=== PATIENT | female | born 1980 | race Caucasian/White ===

== ENCOUNTER 2017-02-24 11:12 | Emergency (ER) | payer SELFPAY ==
[~2017-02-24 11:12] MED LIST: CHLO.12%30 SSP; CIPR500T4 PO; CLIN150 PO; CLIN1CAP5 PO; DICL50TA2 PO; LISI-363 PO; LORTA5 PO
[2017-02-24 11:16] VITALS: BP 140/87; PULSE 98; RESP 20; TEMP 98.4; O2SAT 99
[2017-02-24 12:27] LABS: BACTERIA, URINE MOD /hpf; BLOOD, URINE TRACE (NEG); COMMENT (UR) CULTURE INDICATED; CULTURE IF INDICATED CULTURE INDICATED; GLUCOSE,URINE NEG (NEG); KETONE, URINE NEG (NEG); MUCUS URINE MOD /lpf (OCC); NITRITE,URINE NEG (NEG); SQUAMOUS EPITHELIAL CELL URINE 12 /hpf (0-5); URINE COLOR YELLOW (YELLW/STRAW)
[2017-02-24] MEDS ORDERED: CEPH-460 PO (13:59)
[2017-02-24] MEDS ORDERED: BENZ100 PO (13:59)
--- NOTE | 2017-02-24 14:00 | PD ---
HPI Chief Complaint: Flank/Kidney Pain Time Seen by Provider: 13:59 Travel History International Travel<30 days: No Contact w/Intl Traveler<30days: No Traveled to known affect area: No History of Present Illness HPI 36-year-old female with a history of polycystic kidney disease and recurrent urinary tract infections presents to the emergency department for evaluation of left flank pain that began last night. States that the pain has been constant with no aggravating or alleviating factors. States that this is typical pain that she has when she has a kidney infection. Denies any fever, chills, nausea , vomiting, burning with urination, painful urination, hematuria. States that she has had cold symptoms for the last week, states that she had runny nose, nasal congestion and sore throat one week ago and developed a cough this weekend. No recent travel or sick contacts. Denies . No other complaints. PFSH Past Medical History Anxiety: Yes Depression: No Cancer: No Cardiovascular Problems: Yes Diminished Hearing: No Endocrine: No Genitourinary: Yes (POLYCYCSTIC KIDNEY DISEASE, FREQ UTI) Hypertension: Yes Immune Disorder: No Psychiatric: Yes Immunizations Current: Yes ?: Not LMP: 02/12/17 Menopausal: No : 2 Para: 1 Miscarriage: 0 : 1 Past Surgical History Abdominal Surgery: Yes (HERNIA REPAIR UMBILICAL) Pacemaker: No Other Surgery: Yes (BREAST AGUMENTATION) Social History Alcohol Use: Yes (SOCIAL) Tobacco Use: Yes (5 CIGS DAILY) Substance Use: No Allergies-Medications (Allergen,Severity, Reaction): Coded Allergies: Penicillin (Unverified Allergy, Severe, Rash, 12/06/15) Reported Meds & Prescriptions Reported Meds & Active Scripts Active Tessalon Perles (Benzonatate) 100 Mg Cap 100 Mg PO TID PRN 7 Days Keflex (Cephalexin) 500 Mg Cap 500 Mg PO Q12H 7 Days Peridex Oral Rinse (Chlorhexidine Gluconate) 0.12 % Eve 15 Ml SSP Q8HR 5 Days Diclofenac Potassium 50 Mg Tab 1 Tab PO Q8 PRN Clindamycin Hcl (Clindamycin HCl) 150 Mg Cap 3 Capl PO Q8HR 7 Days Reported Cipro (Ciprofloxacin HCl) 500 Mg Tab 500 Mg PO BID [place] 5-325 mg (Hydrocodone-Acetaminophen 5-325 mg) 5 mg/325 mg Tab 1 Tab PO Q4H PRN Cleocin (Clindamycin HCl) 150 Mg Cap 150 Mg PO Q6 Lisinopril 20 mg (Lisinopril) 20 Mg Tab 1 Tab PO DAILY Review of Systems Except as stated in HPI: all other systems reviewed are Neg Physical Exam Narrative GENERAL: Well-nourished and well-developed female patient in no acute distress who is nontoxic appearing. SKIN: Warm and dry. HEAD: Normocephalic and atraumatic. EYES: No injection, drainage, or hyphema noted. PERRLA. EOMI. ENT: No nasal drainage noted. Oropharynx is clear. NECK: Supple and the trachea is midline. CARDIOVASCULAR: Regular rate and rhythm. RESPIRATORY: Breath sounds are equal bilaterally with no accessory muscle use, wheezing, rhonchi, or crackles. GASTROINTESTINAL: Abdomen is soft, non-tender, and nondistended. MUSCULOSKELETAL: No obvious deformities, swelling, cyanosis, or ecchymosis is present throughout the upper and lower extremities. Patient has full range of motion without any signs of neurovascular compromise. BACK: Left CVA tenderness. NEUROLOGICAL: Awake, alert, and oriented. Normal speech and gait. Cranial nerves are grossly intact. Data Data Last Documented VS Vital Signs Date Time Temp Pulse Resp B/P Pulse Ox O2 Delivery O2 Flow Rate FiO2 02/24/17 11:16 98.4 98 20 140/87 99 Room Air Orders Urinalysis - C+S If Indicated (02/24/17 11:25) Ed Urine Pregnancytest Poc (02/24/17 11:25) Urine Culture (02/24/17 11:36) Labs Laboratory Tests Test 02/24/17 11:36 Urine Color YELLOW Urine Turbidity HAZY Urine pH 6.0 Urine Specific [place] 1.014 Urine Protein 30 mg/dL Urine Glucose (UA) NEG mg/dL Urine Ketones NEG mg/dL Urine Occult Blood TRACE Urine Nitrite NEG Urine Bilirubin NEG Urine Urobilinogen LESS THAN 2.0 MG/DL Urine Leukocyte Esterase MOD Urine RBC 4 /hpf Urine WBC 25 /hpf Urine Squamous Epithelial 12 /hpf Cells Urine Bacteria MOD /hpf Urine Mucus MOD /lpf Microscopic Urinalysis Comment CULTURE INDICATED MDM Medical Decision Making Medical Screen Exam Complete: Yes Emergency Medical Condition: Yes Differential Diagnosis Pyelonephritis versus cystitis versus bronchitis versus URI Narrative Course 36-year-old female with history of polycystic kidney disease and recurrent kidney infections presents to the emergency room for evaluation of left flank pain that began last night. Patient is afebrile, vital signs are stable. She does have left CVA tenderness but otherwise physical examination is unremarkable. Patient appears well overall. ED urine test is negative. Urinalysis shows 30 protein, trace occult blood, moderate leukocyte esterase, 4 red blood cells, 25 white blood cells, moderate bacteria, moderate mucous. This is consistent with a urinary tract infection and the patient will be treated with Keflex. She also has a viral upper respiratory infection, I discussed supportive care with the patient. Patient is discharged to home and is advised to follow up as an outpatient with her PCP. Patient verbalizes understanding and agreement with treatment plan. Diagnosis Primary Impression: Pyelonephritis Additional Impression: URI (upper respiratory infection) Qualified Code: J06.9 - Viral upper respiratory tract infection Referrals: Primary Care Physician Patient Instructions: General Instructions, Kidney Infection (ED) Additional Instructions: Take medication as prescribed. Follow-up with your Primary Care Physician. Return to the ED for any acute worsening of symptoms. Med/Other Pt SpecificInfo: Prescription(s) given Scripts Benzonatate (Tessalon Perles)100 Mg [id number] Mg PO TID PRN (COUGH) 7 Days Ref 0 Prov:Izabela Alejandre MD 02/24/17 Cephalexin (Keflex)500 Mg [id number] Mg PO Q12H 7 Days Ref 0 Prov:Izabela Alejandre MD 02/24/17 Disposition: 01 DISCHARGE HOME Condition: Stable Vivienne Frank Feb 24, 2017 14:00
== END 2017-02-24 14:09 | disposition home or self-care (01) ==
LOC: NEPD 11:12
DX: N12 Tubulo-interstitial nephritis, not specified as acute or chronic (principal); J06.9 Acute upper respiratory infection, unspecified; N39.0 Urinary tract infection, site not specified; Q61.3 Polycystic kidney, unspecified; I10 Essential (primary) hypertension; F41.9 Anxiety disorder, unspecified; F17.210 Nicotine dependence, cigarettes, uncomplicated; Z79.899 Other long term (current) drug therapy; Z88.0 Allergy status to penicillin
CPT/HCPCS: 81001; 84703; 87077; 87086; 87186; 99284

== ENCOUNTER 2017-02-28 21:59 | Emergency (ER) | payer SELFPAY ==
[~2017-02-28] VITALS: Ht 170.2 cm; Wt 55.0 kg
[~2017-02-28 21:59] MED LIST changes: +BENZ100 PO; +CEPH-460 PO
[2017-02-28 22:01] VITALS: BP 148/110; PULSE 106; RESP 16; TEMP 99.2; O2SAT 98
[2017-02-28] MEDS ORDERED: SODIUM CHLOR 0.9% 1000 ML INJ 1,000 ML IV ONE (22:33)
[2017-02-28] MEDS ORDERED: AMLO5TAB2 PO (22:35)
--- NOTE | 2017-02-28 22:38 | PD ---
HPI . Left flank pain Chief Complaint: Flank/Kidney Pain Time Seen by Provider: 22:27 Travel History International Travel<30 days: No Contact w/Intl Traveler<30days: No Traveled to known affect area: No History of Present Illness HPI This patient presents with chief complaint of left flank pain. Onset was 02/23. Patient was seen here on 02/24 and diagnosed with UTI. She was treated with Keflex. She presents back to us today complaining with continued and worsening pain. She states that the pain is now severe. It is associated with nausea but no vomiting. She denies any urinary tract symptoms such as dysuria, frequency or urgency. PFSH Past Medical History Anxiety: Yes Depression: No Cancer: No Cardiovascular Problems: Yes Diminished Hearing: No Endocrine: No Genitourinary: Yes (POLYCYCSTIC KIDNEY DISEASE, FREQ UTI) Hypertension: Yes Immune Disorder: No Psychiatric: Yes Immunizations Current: Yes ?: Not LMP: January Menopausal: No : 2 Para: 1 Miscarriage: 0 : 1 Past Surgical History Abdominal Surgery: Yes (HERNIA REPAIR UMBILICAL) Pacemaker: No Other Surgery: Yes (BREAST AGUMENTATION) Social History Alcohol Use: Yes (SOCIAL) Tobacco Use: Yes (CIGS when she drinks) Substance Use: No Allergies-Medications (Allergen,Severity, Reaction): Coded Allergies: Penicillin (Unverified Allergy, Severe, Rash, 02/28/17) Reported Meds & Prescriptions Reported Meds & Active Scripts Active Tessalon Perles (Benzonatate) 100 Mg Cap 100 Mg PO TID PRN 7 Days Keflex (Cephalexin) 500 Mg Cap 500 Mg PO Q12H 7 Days Reported Amlodipine (Amlodipine Besylate) 5 Mg Tab 5 Mg PO DAILY Review of Systems Except as stated in HPI: all other systems reviewed are Neg General / Constitutional: No: Fever, Chills Gastrointestinal: Positive: Nausea, No: Vomiting Genitourinary: Positive: Flank Pain, No: Urgency, Frequency, Dysuria Physical Exam Narrative GENERAL: Awake and alert and in no acute distress. SKIN: Warm and dry. HEAD: Atraumatic. Normocephalic. EYES: Pupils equal and round. NECK: Trachea midline. CARDIOVASCULAR: Regular rate and rhythm. RESPIRATORY: No accessory muscle use. GI/: Mild left CVA tenderness. Abdomen is soft and nontender. MUSCULOSKELETAL: No obvious deformities. No edema. NEUROLOGICAL: Awake and alert. No obvious cranial nerve deficits. Motor grossly within normal limits. Normal speech. PSYCHIATRIC: Appropriate mood and affect; insight and judgment normal. Data Data Last Documented VS Vital Signs Date Time Temp Pulse Resp B/P Pulse Ox O2 Delivery O2 Flow Rate FiO2 02/28/17 22:01 99.2 106 16 148/110 98 Room Air Orders Complete Blood Count With Diff (02/28/17 22:33) Basic Metabolic Panel (Bmp) (02/28/17 22:33) Urinalysis - C+S If Indicated (02/28/17 22:33) Iv Access Insert/Monitor (02/28/17 22:33) Cath For Specimen (02/28/17 22:33) Sodium Chlor 0.9% 1000 Ml Inj (Ns 1000 M (02/28/17 22:33) Ondansetron Inj (Zofran Inj) (02/28/17 22:45) Hydromorphone Pf Inj (Dilaudid Pf Inj) (02/28/17 22:45) Ed Urine Pregnancytest Poc (02/28/17 22:33) Ct Abd/Pel W/O Iv Contrast (02/28/17 22:33) Labs Laboratory Tests Test 02/28/17 02/28/17 22:35 22:45 White Blood Count 10.1 TH/MM3 Red Blood Count 4.54 MIL/MM3 Hemoglobin 13.2 GM/DL Hematocrit 39.0 % Mean Corpuscular Volume 85.9 FL Mean Corpuscular Hemoglobin 29.1 PG Mean Corpuscular Hemoglobin 33.8 % Concent Red Cell Distribution Width 13.9 % Platelet Count 217 TH/MM3 Mean Platelet Volume 8.5 FL Neutrophils (%) (Auto) 74.1 % Lymphocytes (%) (Auto) 14.9 % Monocytes (%) (Auto) 8.8 % Eosinophils (%) (Auto) 1.7 % Basophils (%) (Auto) 0.5 % Neutrophils # (Auto) 7.5 TH/MM3 Lymphocytes # (Auto) 1.5 TH/MM3 Monocytes # (Auto) 0.9 TH/MM3 Eosinophils # (Auto) 0.2 TH/MM3 Basophils # (Auto) 0.1 TH/MM3 CBC Comment DIFF FINAL Differential Comment Sodium Level 137 MEQ/L Potassium Level 3.7 MEQ/L Chloride Level 101 MEQ/L Carbon Dioxide Level 29.5 MEQ/L Anion Gap 7 MEQ/L Blood Urea Nitrogen 18 MG/DL Creatinine 0.84 MG/DL Estimat Glomerular Filtration 78 ML/MIN Rate Random Glucose 85 MG/DL Calcium Level 9.7 MG/DL Urine Color YELLOW Urine Turbidity HAZY Urine pH 6.5 Urine Specific [place] 1.013 Urine Protein TRACE mg/dL Urine Glucose (UA) NEG mg/dL Urine Ketones NEG mg/dL Urine Occult Blood NEG Urine Nitrite NEG Urine Bilirubin NEG Urine Urobilinogen LESS THAN 2.0 MG/DL Urine Leukocyte Esterase TRACE Urine RBC LESS THAN 1 /hpf Urine WBC 2 /hpf Urine Squamous Epithelial 8 /hpf Cells Urine Bacteria RARE /hpf Urine Hyaline Casts 1 /lpf Urine Mucus FEW /lpf Microscopic Urinalysis Comment CULT NOT INDICATED MDM Medical Decision Making Medical Screen Exam Complete: Yes Emergency Medical Condition: Yes Medical Record Reviewed: Yes (seen here on 02/24. Her UA showed moderate leukocyte esterase, 25 white blood cells, moderate bacteria. A subsequent culture shows Escherichia coli which is pansensitive with the exception of tetracycline. She was discharged on Keflex.) Differential Diagnosis Final differential diagnosis of urinary symptoms includes but is not limited to UTI, kidney stone, pyelonephritis, bacterial vaginosis, yeast infection, urinary retention Narrative Course Presents with left flank pain. Since she has been treated for several days with an appropriate antibiotic and is not improving and is, in fact, worsening, I have ordered a CT to rule out kidney stone. Repeat her UA tonight. I have ordered IV fluids, IV Dilaudid and IV Zofran. CBC & BMP Diagram 02/28/17 22:35 UA>>trace LE, 2 WBCs, rare bact. This is much improved from her UA done on . Last Impressions Abdomen/Pelvis CT 02/28/17 [id number] Signed Impressions: Service Date/Time: Wednesday, March 01, 2017 00:20 - CONCLUSION: 1. Stable CT scan of the abdomen and pelvis compared to the prior examination. 2. No significant change in the appearance of the polycystic kidney disease. Multiple tiny nonobstructing bilateral renal calculi are again demonstrated. No definite hydronephrosis. 3. Small amount of free fluid in the cul-de-sac. 4. Stable chronic deformity of the anterior chest wall. Jace Raymundo MD This patient has a UTI which is improving with current treatment. She has left flank pain but no evidence of pyelonephritis or obstructive uropathy. She'll be discharged home. Diagnosis Primary Impression: Left flank pain Patient Instructions: Flank Pain (ED), General Instructions Disposition: 01 DISCHARGE HOME Condition: Stable Carrlo Lomas MD Feb 28, 2017 22:38
[2017-02-28] MEDS ORDERED: ONDANSETRON HCL 4 MG/2 ML VIAL IVP ONE (22:45)
[2017-02-28] MEDS ORDERED: HYDROmorphone HCL PF 1 MG/ML VIAL IVS ONE (22:45)
[2017-02-28 22:56] LABS: AUTOMATED NEUTROPHIL # 7.5 TH/MM3 (1.8-7.7); BASOPHIL # 0.1 TH/MM3 (0-0.2); BASOPHIL % 0.5 % (0.0-2.0); EOSINOPHIL # 0.2 TH/MM3 (0-0.4); EOSINOPHIL % 1.7 % (0.0-4.0); HEMO FLAGS DIFF FINAL; LYMPH % 14.9 % (9.0-44.0); LYMPHOCYTE # 1.5 TH/MM3 (1.0-4.8); MEAN CELL VOLUME 85.9 FL (80.0-100.0); MEAN CORPUSCULAR HEMOGLOBIN 29.1 PG (27.0-34.0); MEAN CORPUSCULAR HGB CONC 33.8 % (32.0-36.0); MONO % 8.8 % (0.0-8.0); NEUT % 74.1 % (16.0-70.0); PLATELET COUNT 217 TH/MM3 (150-450); RED BLOOD COUNT 4.54 MIL/MM3 (4.00-5.30); RED CELL DISTRIBUTION WIDTH 13.9 % (11.6-17.2); WHITE BLOOD COUNT 10.1 TH/MM3 (4.0-11.0)
[2017-02-28 23:13] LABS: BICARBONATE 29.5 MEQ/L (21.0-32.0); POTASSIUM 3.7 MEQ/L (3.5-5.1)
[2017-02-28 23:19] LABS: BACTERIA, URINE RARE /hpf; BLOOD, URINE NEG (NEG); COMMENT (UR) CULT NOT INDICATED; CULTURE IF INDICATED CULT NOT INDICATED; GLUCOSE,URINE NEG (NEG); HYALINE CAST, URINE 1 /lpf (RARE); KETONE, URINE NEG (NEG); MUCUS URINE FEW /lpf (OCC); NITRITE,URINE NEG (NEG); PH, URINE 6.5 (5.0-8.5); SQUAMOUS EPITHELIAL CELL URINE 8 /hpf (0-5); URINE COLOR YELLOW (YELLW/STRAW)
--- NOTE | 2017-03-01 00:40 | RADRPT ---
EXAM DATE/TIME: 03/01/2017 00:20 [facility] COMPARISON: CT ABDOMEN & PELVIS W/O CONTRAST, December 18, 2014, 12:59. INDICATIONS : Left flank pain x5 days. ORAL CONTRAST: No oral contrast ingested. RADIATION DOSE: 4.53 CTDIvol (mGy) MEDICAL HISTORY : Cardiovascular disease. Hypertension. Hernia, umbilical.Polycystic kidney disease. SURGICAL HISTORY : Umbilical hernia repair. ENCOUNTER: Initial ACUITY: 4 - 6 days PAIN SCALE: 9/10 LOCATION: Left flank TECHNIQUE: Volumetric scanning of the abdomen and pelvis was performed. Using automated exposure control and ad justment of the mA and/or kV according to patient size, radiation dose was kept as low as reasonably achievable to obtain optimal diagnostic quality images. DICOM format image data is available electro nically for review and comparison. The lack of IV contrast limits the diagnosis for certain organ pa thology. FINDINGS: LOWER LUNGS: The visualized lower lungs are clear. Stable chronic deformity of the anterior chest wall. LIVER: Homogeneous density without lesion. There is no dilation of the biliary tree. No calcified gallston es. SPLEEN: Normal size without lesion. PANCREAS: Within normal limits. KIDNEYS: There continues to be findings of polycystic kidney disease. This was demonstrated on the prior study . Multiple tiny nonobstructing bilateral renal calculi are again demonstrated. No definite hydronephr osis. No perinephric edema. These findings are stable compared to the prior study. The ureters are no ndilated. ADRENAL GLANDS: Not well visualized do to the polycystic kidney disease. VASCULAR: There is no aortic aneurysm. BOWEL/MESENTERY: The stomach, small bowel, and colon demonstrate no acute abnormality. There is no free intraperitone al air or fluid. No inflammatory changes. ABDOMINAL WALL: Within normal limits. RETROPERITONEUM: There is no lymphadenopathy. BLADDER: No wall thickening or mass. REPRODUCTIVE: There is a small amount of fluid in the cul-de-sac. The uterus appears to be stable compared to the p rior study. INGUINAL: There is no lymphadenopathy or hernia. MUSCULOSKELETAL: Within normal limits for patient age. CONCLUSION: 1. Stable CT scan of the abdomen and pelvis compared to the prior examination. 2. No significant change in the appearance of the polycystic kidney disease. Multiple tiny nonobstruc ting bilateral renal calculi are again demonstrated. No definite hydronephrosis. 3. Small amount of free fluid in the cul-de-sac. 4. Stable chronic deformity of the anterior chest wall. Jace Raymundo MD on March 01, 2017 at 0:33 Board Certified Radiologist. This report was verified electronically.
== END 2017-03-01 01:38 | disposition home or self-care (01) ==
LOC: NEPD 21:59
DX: R10.9 Unspecified abdominal pain (principal); N39.0 Urinary tract infection, site not specified; Q61.3 Polycystic kidney, unspecified; N20.0 Calculus of kidney; N13.30 Unspecified hydronephrosis; R11.0 Nausea; F41.9 Anxiety disorder, unspecified; I10 Essential (primary) hypertension; F17.210 Nicotine dependence, cigarettes, uncomplicated
CPT/HCPCS: 74176; 80048; 81001; 84703; 85025; 96374; 99285; J2405; J7030

== ENCOUNTER 2017-04-04 17:32 | Emergency (ER) | payer SELFPAY ==
[~2017-04-04] VITALS: Ht 170.2 cm; Wt 60.0 kg
[~2017-04-04 17:32] MED LIST changes: +AMLO5TAB2 PO; -CHLO.12%30 SSP; -CIPR500T4 PO; -CLIN150 PO; -CLIN1CAP5 PO; -DICL50TA2 PO; -LISI-363 PO; -LORTA5 PO
[2017-04-04 17:34] VITALS: BP 124/79; PULSE 110; RESP 15; TEMP 100; O2SAT 100
[2017-04-04 18:30] LABS: BACTERIA, URINE OCC /hpf; BLOOD, URINE LARGE (NEG); GLUCOSE,URINE NEG (NEG); KETONE, URINE 10 mg/dL (NEG); MUCUS URINE FEW /lpf (OCC); NITRITE,URINE NEG (NEG); SQUAMOUS EPITHELIAL CELL URINE 13 /hpf (0-5)
[2017-04-04 18:31] LABS: COMMENT (UR) CULTURE INDICATED; CULTURE IF INDICATED CULTURE INDICATED; URINE COLOR LIGHT-RED (YELLW/STRAW)
[2017-04-04] MEDS ORDERED: SODIUM CHLOR 0.9% 1000 ML INJ 1,000 ML IV SCH ×2 (20:42)
[2017-04-04] MEDS ORDERED: cefTRIAXone INJ 1,000 MG in SODIUM CHLORIDE 0.9% INJ 100 ML IV ONE (20:45)
[2017-04-04] MEDS ORDERED: KETOROLAC TROMETHAMINE 30 MG/ML (IVP) VIAL IV PUSH ONE (20:45)
--- NOTE | 2017-04-04 21:00 | PD ---
HPI Chief Complaint: Complaint Time Seen by Provider: 20:35 Travel History International Travel<30 days: No Contact w/Intl Traveler<30days: No Traveled to known affect area: No History of Present Illness HPI This is a 36-year-old female to history of polycystic kidney disease who presents for evaluation of bilateral flank pain. Symptoms started yesterday. Pain is an aching pain which is constant. She endorses increased urinary frequency. She had some dysuria which has resolved. She has had kidney infections in the past and this feels similar. She endorses fevers and chills at home today. Denies nausea or vomiting, diarrhea or constipation. Denies gross hematuria. No history of kidney stone. The patient was seen here last month with similar symptoms. She had a CT abdomen and pelvis which was negative for stone. No other complaints. PFSH Past Medical History Anxiety: Yes Depression: No Cancer: No Cardiovascular Problems: Yes Diminished Hearing: No Endocrine: No Genitourinary: Yes (POLYCYCSTIC KIDNEY DISEASE, FREQ UTI) Hypertension: Yes Immune Disorder: No Psychiatric: Yes Immunizations Current: Yes Tetanus Vaccination: > 5 Years Influenza Vaccination: No ?: Not LMP: 03/19/2017 Menopausal: No : 2 Para: 1 Miscarriage: 0 : 1 Past Surgical History Abdominal Surgery: Yes (HERNIA REPAIR UMBILICAL) Pacemaker: No Other Surgery: Yes (BREAST AGUMENTATION) Social History Alcohol Use: Yes (SOCIAL) Tobacco Use: Yes (CIGS when she drinks) Substance Use: No Allergies-Medications (Allergen,Severity, Reaction): Coded Allergies: penicillin G (Unverified Allergy, Severe, Rash, 03/30/17) Reported Meds & Prescriptions Reported Meds & Active Scripts Active Bactrim DS (Sulfamethoxazole-Trimethoprim) 800-160 Mg Tab 1 Tab PO BID Reported Amlodipine (Amlodipine Besylate) 5 Mg Tab 5 Mg PO DAILY Review of Systems Except as stated in HPI: all other systems reviewed are Neg Physical Exam Narrative GENERAL: Well-developed well-nourished female in no acute distress SKIN: Warm and dry. HEAD: Atraumatic. Normocephalic. EYES: Pupils equal and round. No scleral icterus. No injection or drainage. ENT: No nasal bleeding or discharge. Mucous membranes pink and moist. NECK: Trachea midline. No JVD. CARDIOVASCULAR: Regular rate and rhythm. No murmur appreciated. RESPIRATORY: No accessory muscle use. Clear to auscultation. Breath sounds equal bilaterally. GASTROINTESTINAL: Abdomen soft, mild left upper quadrant tenderness, bilateral CVA tenderness without guarding. MUSCULOSKELETAL: No obvious deformities. No clubbing. No cyanosis. No edema. NEUROLOGICAL: Awake and alert. No obvious cranial nerve deficits. Motor grossly within normal limits. Normal speech. PSYCHIATRIC: Appropriate mood and affect; insight and judgment normal. Data Data Last Documented VS Vital Signs Date Time Temp Pulse Resp B/P (MAP) Pulse Ox O2 Delivery O2 Flow Rate FiO2 04/04/17 17:34 100.0 110 15 124/79 (94) 100 Orders Orders Ed Urine Pregnancytest Poc (04/04/17 18:01) Urinalysis - C+S If Indicated (04/04/17 18:01) Urine Culture (04/04/17 18:07) Complete Blood Count With Diff (04/04/17 20:42) Comprehensive Metabolic Panel (04/04/17 20:42) Lactic Acid Sepsis Protocol (04/04/17 20:42) Blood Culture (04/04/17 20:42) Sodium Chlor 0.9% 1000 Ml Inj (Ns 1000 M (04/04/17 20:42) Sodium Chlor 0.9% 1000 Ml Inj (Ns 1000 M (04/04/17 20:42) Ketorolac Inj (Toradol Inj) (04/04/17 20:45) Ceftriaxone Inj (Rocephin Inj) (04/04/17 20:45) Potassium Chloride (Kcl) (04/04/17 22:15) Labs Laboratory Tests Test 04/04/17 18:07 04/04/17 21:00 Urine Color LIGHT-RED Urine Turbidity CLOUDY Urine pH 6.0 Urine Specific [place] 1.018 Urine Protein 300 mg/dL Urine Glucose (UA) NEG mg/dL Urine Ketones 10 mg/dL Urine Occult Blood LARGE Urine Nitrite NEG Urine Bilirubin NEG Urine Urobilinogen LESS THAN 2.0 MG/DL Urine Leukocyte Esterase LARGE Urine RBC /hpf Urine WBC /hpf Urine WBC Clumps MOD Urine Squamous Epithelial Cells 13 /hpf Urine Bacteria OCC /hpf Urine Mucus FEW /lpf Microscopic Urinalysis Comment CULTURE INDICATED White Blood Count 15.9 TH/MM3 Red Blood Count 4.50 MIL/MM3 Hemoglobin 12.9 GM/DL Hematocrit 38.6 % Mean Corpuscular Volume 85.9 FL Mean Corpuscular Hemoglobin 28.7 PG Mean Corpuscular Hemoglobin Concent 33.5 % Red Cell Distribution Width 14.7 % Platelet Count 205 TH/MM3 Mean Platelet Volume 9.5 FL Neutrophils (%) (Auto) 78.4 % Lymphocytes (%) (Auto) 9.8 % Monocytes (%) (Auto) 10.8 % Eosinophils (%) (Auto) 0.7 % Basophils (%) (Auto) 0.3 % Neutrophils # (Auto) 12.5 TH/MM3 Lymphocytes # (Auto) 1.6 TH/MM3 Monocytes # (Auto) 1.7 TH/MM3 Eosinophils # (Auto) 0.1 TH/MM3 Basophils # (Auto) 0.0 TH/MM3 CBC Comment DIFF FINAL Differential Comment Blood Urea Nitrogen 12 MG/DL Creatinine 0.83 MG/DL Random Glucose 88 MG/DL Total Protein 7.3 GM/DL Albumin 3.4 GM/DL Calcium Level 9.0 MG/DL Alkaline Phosphatase 54 U/L Aspartate Amino Transf (AST/SGOT) 12 U/L Alanine Aminotransferase (ALT/SGPT) 11 U/L Total Bilirubin 1.1 MG/DL Sodium Level 133 MEQ/L Potassium Level 3.4 MEQ/L Chloride Level 99 MEQ/L Carbon Dioxide Level 26.8 MEQ/L Anion Gap 7 MEQ/L Estimat Glomerular Filtration Rate 79 ML/MIN Lactic Acid Level 0.9 mmol/L MDM Medical Decision Making Medical Screen Exam Complete: Yes Emergency Medical Condition: Yes Medical Record Reviewed: Yes Differential Diagnosis Pyelonephritis, perinephric abscess, hydronephrosis, renal stone, muscle spasm, sepsis Narrative Course 36-year-old female to history of polycystic kidney disease presents with bilateral flank pain and increased urinary frequency since yesterday. Symptoms are consistent with previous instances of pyelonephritis. Her urinalysis is consistent with infectious process. She is tachycardic and febrile in triage. Therefore IV will be established, will be given IV Rocephin and 2 L of fluids as well as Toradol, basic lab work and blood cultures have been ordered. The patient had a recent CT of the abdomen and pelvis which revealed no evidence of stone and therefore CT abdomen and pelvis will be deferred at this time. The patient's lab work has been reviewed. WBC count of 15.9 with 78.4% neutrophils. Potassium 3.4, this will be replenished orally. Lactic acid is within normal limits. The patient feels improved after IV fluids. The plan is to discharge the patient with oral antibiotics with a low threshold for returning to the emergency department. The patient is stable for discharge. Diagnosis Primary Impression: Pyelonephritis Patient Instructions: General Instructions Departure Forms: Tests/Procedures Additional Instructions: Take the antibiotics as prescribed. Stay well hydrated well-nourished. Return for any acutely new or worsening symptoms. Med/Other Pt SpecificInfo: Prescription(s) given Scripts Sulfamethoxazole-Trimethoprim (Bactrim DS) 800-160 Mg Tab 1 TAB PO BID for Infection, #20 TAB 0 Refills Prov: Akua England DO 04/04/17 Disposition: 01 DISCHARGE HOME Condition: Stable Jostin Gómez Apr 04, 2017 21:00
[2017-04-04 21:47] LABS: AUTOMATED NEUTROPHIL # 12.5 TH/MM3 (1.8-7.7); BASOPHIL % 0.3 % (0.0-2.0); EOSINOPHIL # 0.1 TH/MM3 (0-0.4); EOSINOPHIL % 0.7 % (0.0-4.0); HEMATOCRIT 38.6 % (35.0-46.0); HEMO FLAGS DIFF FINAL; LYMPH % 9.8 % (9.0-44.0); LYMPHOCYTE # 1.6 TH/MM3 (1.0-4.8); MEAN CELL VOLUME 85.9 FL (80.0-100.0); MEAN CORPUSCULAR HEMOGLOBIN 28.7 PG (27.0-34.0); MEAN CORPUSCULAR HGB CONC 33.5 % (32.0-36.0); MONO % 10.8 % (0.0-8.0); NEUT % 78.4 % (16.0-70.0); PLATELET COUNT 205 TH/MM3 (150-450); RED CELL DISTRIBUTION WIDTH 14.7 % (11.6-17.2); WHITE BLOOD COUNT 15.9 TH/MM3 (4.0-11.0)
[2017-04-04 21:58] LABS: ANION GAP 7 MEQ/L (5-15); AST (GOT) 12 U/L (15-37); BICARBONATE 26.8 MEQ/L (21.0-32.0); BLOOD UREA NITROGEN 12 MG/DL (7-18); CHLORIDE 99 MEQ/L (98-107); GLOMERULAR FILTRATION RATE 79 ML/MIN (>89); POTASSIUM 3.4 MEQ/L (3.5-5.1); SODIUM (NA) 133 MEQ/L (136-145)
[2017-04-04 22:00] LABS: ALT (GPT) 11 U/L (10-53)
[2017-04-04 22:01] LABS: ALKALINE PHOSPHATASE 54 U/L (45-117); TOTAL BILIRUBIN ADULT 1.1 MG/DL (0.2-1.0)
[2017-04-04] MEDS ORDERED: POTASSIUM CHLORIDE 20 MEQ CONTROLLED RELEASE TAB PO ONE (22:15)
[2017-04-04] MEDS ORDERED: BACT800T5 PO (22:16)
[2017-04-04 23:14] VITALS: BP 126/85
== END 2017-04-04 23:17 | disposition home or self-care (01) ==
LOC: NEPD 17:32
DX: N10 Acute pyelonephritis (principal); B96.20 Unspecified Escherichia coli [E. coli] as the cause of diseases classified elsewhere; I10 Essential (primary) hypertension; F17.210 Nicotine dependence, cigarettes, uncomplicated
CPT/HCPCS: 80053; 81001; 83605; 84703; 85025; 87040; 87077; 87086; 87186; 96365; 96375; 99284; J0696; J1885; J7030

== ENCOUNTER 2017-08-01 13:41 | Emergency (ER) | payer SELFPAY ==
[~2017-08-01] VITALS: Ht 170.2 cm; Wt 60.0 kg
[~2017-08-01 13:41] MED LIST changes: +BACT800T5 PO; -BENZ100 PO; -CEPH-460 PO
[2017-08-01 13:43] VITALS: BP 161/99; PULSE 99; RESP 18; TEMP 99; O2SAT 100
[2017-08-01 14:33] LABS: BACTERIA, URINE RARE /hpf; BILIRUBIN, URINE NEG (NEG); BLOOD, URINE LARGE (NEG); GLUCOSE,URINE NEG (NEG); KETONE, URINE NEG (NEG); NITRITE,URINE POS (NEG); SQUAMOUS EPITHELIAL CELL URINE 2 /hpf (0-5); URINE COLOR YELLOW (YELLW/STRAW); URINE LEUKOCYTE ESTERASE LARGE (NEG); WHITE BLOOD CELL CLUMPS FEW
--- NOTE | 2017-08-01 15:04 | PD ---
HPI Chief Complaint: Flank/Kidney Pain Time Seen by Provider: 15:04 Travel History International Travel<30 days: No Contact w/Intl Traveler<30days: No Traveled to known affect area: No History of Present Illness HPI 37-year-old female presents to ED for evaluation of 3 day history of dysuria, urinary urgency, right-sided flank pain. Patient denies fever, chills, nausea, vomiting, changes in bowel habits. She states her symptoms are similar to previous episodes of pyelonephritis. Denies vaginal discharge, risk of . She treated at home with ibuprofen with no improvement in symptoms. PFSH Past Medical History Anxiety: Yes Depression: No Cancer: No Cardiovascular Problems: Yes Diminished Hearing: No Endocrine: No Genitourinary: Yes (POLYCYCSTIC KIDNEY DISEASE, FREQ UTI) Hypertension: Yes Immune Disorder: No Psychiatric: Yes Immunizations Current: Yes ?: Unknown LMP: 06/2017 Menopausal: No : 2 Para: 1 Miscarriage: 0 : 1 Past Surgical History Abdominal Surgery: Yes (HERNIA REPAIR UMBILICAL) Pacemaker: No Other Surgery: Yes (BREAST AGUMENTATION) Social History Alcohol Use: Yes (SOCIAL) Tobacco Use: Yes (CIGS when she drinks) Substance Use: No Allergies-Medications (Allergen,Severity, Reaction): Coded Allergies: penicillin G (Unverified Allergy, Severe, Rash, 08/01/17) Reported Meds & Prescriptions Reported Meds & Active Scripts Active Cipro (Ciprofloxacin HCl) 250 Mg Tab 500 Mg PO BID 7 Days Pyridium (Phenazopyridine HCl) 100 Mg Tab 100 Mg PO Q8HR Reported Amlodipine (Amlodipine Besylate) 5 Mg Tab 5 Mg PO DAILY Review of Systems Except as stated in HPI: all other systems reviewed are Neg Physical Exam Narrative GENERAL: Well-nourished, well-developed white female in no acute distress. SKIN: Focused skin assessment warm/dry. HEAD: Normocephalic. EYES: No scleral icterus. No injection or drainage. NECK: Supple, trachea midline. No JVD or lymphadenopathy. CARDIOVASCULAR: Regular rate and rhythm without murmurs, gallops, or rubs. RESPIRATORY: Breath sounds are and equal bilaterally. No accessory muscle use. GASTROINTESTINAL: Abdomen soft, nondistended. Tender to palpation in the right lower quadrant. No palpable masses. No hepatosplenomegaly. Active bowel sounds. MUSCULOSKELETAL: No cyanosis, or edema. BACK: Nontender without obvious deformity. Positive right sided CVA tenderness. Data Data Last Documented VS Vital Signs Date Time Temp Pulse Resp B/P (MAP) Pulse Ox O2 Delivery O2 Flow Rate FiO2 08/01/17 13:43 99.0 99 18 161/99 (119) 100 Room Air Orders Orders Urinalysis - C+S If Indicated (08/01/17 14:13) Ed Urine Pregnancytest Poc (08/01/17 14:13) Urine Culture (08/01/17 14:15) Levofloxacin (Levaquin) (08/01/17 15:15) Phenazopyridine (Pyridium) (08/01/17 15:15) Labs Laboratory Tests Test 08/01/17 14:15 Urine Color YELLOW Urine Turbidity HAZY Urine pH 6.0 Urine Specific [place] 1.013 Urine Protein 100 mg/dL Urine Glucose (UA) NEG mg/dL Urine Ketones NEG mg/dL Urine Occult Blood LARGE Urine Nitrite POS Urine Bilirubin NEG Urine Urobilinogen LESS THAN 2.0 MG/DL Urine Leukocyte Esterase LARGE Urine RBC /hpf Urine WBC /hpf Urine WBC Clumps FEW Urine Squamous Epithelial Cells 2 /hpf Urine Bacteria RARE /hpf Microscopic Urinalysis Comment CULTURE INDICATED MDM Medical Decision Making Medical Screen Exam Complete: Yes Emergency Medical Condition: Yes Differential Diagnosis Cystitis versus pyelonephritis versus ectopic versus other Narrative Course 37-year-old female presents to ED for evaluation of 3 day history of dysuria, urinary urgency, right-sided flank pain. Patient denies fever, chills, nausea, vomiting, changes in bowel habits, vaginal discharge, risk of .. She states her symptoms are similar to previous episodes of pyelonephritis. Vitals reviewed. Physical exam the patient is nontoxic appearing. She does have suprapubic and right lower quadrant tenderness as well as right CVA tenderness. Exam otherwise unremarkable. test negative. This is pyelonephritis. I reviewed the patient's record, last UA culture grew Escherichia coli, pansensitive. He was administered a single dose of 750 g of Levaquin and a dose of Pyridium.. She is prescribed 500 mg Cipro twice a day 7 days along with a few doses of Pyridium. She is instructed take the medication as prescribed, follow-up with her primary care provider, return for worsening symptoms. She indicated understanding of these instructions and is agreeable a care plan. She is stable and discharged home. Diagnosis Primary Impression: Pyelonephritis Referrals: Primary Care Physician Patient Instructions: General Instructions, Kidney Infection (ED) Additional Instructions: Rest, hydrate. Take antibiotics until every pill is gone. Follow-up with your primary care provider. Return to the ED for any urgent or emergent medical condition. Med/Other Pt SpecificInfo: Prescription(s) given Scripts Ciprofloxacin (Cipro) 250 Mg Tab 500 MG PO BID for Infection for 7 Days, #28 TAB 0 Refills Prov: Giovanni Colindres MD 08/01/17 Phenazopyridine (Pyridium) 100 Mg Tab 100 MG PO Q8HR for Dysuria, #6 TAB 0 Refills Prov: Giovanni Colindres MD 08/01/17 Disposition: 01 DISCHARGE HOME Condition: Stable Irma Mclaughlin Aug 01, 2017 15:04
[2017-08-01] MEDS ORDERED: PHEN0.4T PO (15:10)
[2017-08-01] MEDS ORDERED: LEVA750T9 PO (15:10)
[2017-08-01] MEDS ORDERED: CIPR250T52 PO ×2 (15:13→15:17)
[2017-08-01] MEDS ORDERED: PHENAZOPYRIDINE HCL 200 MG TAB PO ONE (15:15)
[2017-08-01] MEDS ORDERED: LEVOFLOXACIN 750 MG TAB PO ONE (15:15)
== END 2017-08-01 15:42 | disposition home or self-care (01) ==
LOC: NEPD 13:41
DX: N12 Tubulo-interstitial nephritis, not specified as acute or chronic (principal); B96.20 Unspecified Escherichia coli [E. coli] as the cause of diseases classified elsewhere; F41.9 Anxiety disorder, unspecified; I10 Essential (primary) hypertension; Q61.3 Polycystic kidney, unspecified; F17.210 Nicotine dependence, cigarettes, uncomplicated; Z79.899 Other long term (current) drug therapy; Z88.0 Allergy status to penicillin
CPT/HCPCS: 81001; 84703; 87077; 87086; 87186; 99284